=== PATIENT | male | born 1950 | race Caucasian/White ===

== ENCOUNTER 2024-02-28 10:57 | Emergency (ER) | payer MEDICARE, OTHER, SELFPAY ==
[2024-02-28 11:00] VITALS: BP 140/86
[2024-02-28 11:25] LABS: % Basophils 0.4 % (0-2); % Eosinophils 0.8 % (0-6); % Immature Granulocytes 0.4 % (0-0.5); % Lymphocytes 16.9 % (20.5-51.1); % Neutrophils 73.5 % (42.2-75.2); Absolute Eosinophils 0.1 10^3/uL (0-0.7); Absolute Lymphocytes 1.2 10^3/uL (1.2-3.4); Absolute Monocytes 0.6 10^3/uL (0.1-0.6); Absolute Neutrophils 5.3 10^3/uL (1.4-6.5); Hematocrit 46.1 % (39.0-52.0); Hemoglobin 15.6 g/dL (13.0-18.0); Mean Corp Hgb Conc. 33.8 g/dL (33.0-37.0); Mean Corpuscular Hgb 31.6 pg (27.0-31.0); Mean Corpuscular Volume 93.3 fL (80.0-94.0); Mean Platelet Volume 9.9 fL (7.4-10.4); Nucleated Red Blood Cells % 0 % (-); Platelet Count 160 10^3/uL (130-400); Red Blood Cell Count 4.94 10^6/uL (4.70-6.10); Red Cell Dist. Width 12.8 % (11.5-14.5); White Blood Cell Count 7.2 10^3/uL (4.8-10.8)
[2024-02-28 11:39] LABS: ALT (SGPT) 23 U/L (0-50); AST (SGOT) 21 U/L (17-59); Albumin 4.2 g/dl (3.5-5.0); Alkaline Phosphatase 64 U/L (38-126); Blood Urea Nitrogen 21 mg/dl (9-20); Calcium 9.1 mg/dl (8.4-10.2); Carbon Dioxide 31 mmol/L (22-30); Chloride 103 mmol/L (98-107); Glucose 101 mg/dl (70-99); Potassium 4.6 mmol/L (3.5-5.1); Sodium 140 mmol/L (135-145); Total Bilirubin 0.6 mg/dl (0.2-1.3); Total Protein 6.2 g/dl (6.3-8.2); eGFR > 60.00
[2024-02-28 11:50] LABS: Troponin I < 0.012 ng/ml
[2024-02-28 12:12] VITALS: BP 113/73; BMI 22.2
--- NOTE | 2024-02-28 12:13 | ED.GENMED ---
History of Present Illness
General
Chief Complaint: Chest Pain
Source: patient
Exam Limitations: none
Time Seen by Provider: 02/28/24 11:50
Nursing documentation reviewed up to this point in time: agreed with
History of Present Illness
History of Present Illness:
73-year-old male presents to the ER for evaluation of anterior chest pain that started on . He denies any injury but does report that with movement of his chest and taking a deep breath he has anterior chest discomfort. It does not
radiate. Symptoms seem to improve when he is resting. It is not made worse with walking. He denies any recent injury fever chills. He does walk his dogs and reports they do pull him often but he did not take notice to a specific injury. He did
take a full aspirin today. He was a little short of breath in the shower which is what prompted him to come to the ER. He denies any prior history of DVT PE.
Past History
Past History
ED Past Medical History: Hypercholesterolemia and Psychiatric (Anxiety)
ED Past Surgical History: Other (Hernia surgery)
Social History
Tobacco: Non-smoker
Review of Systems
Review of Systems
Allergies reviewed?: Yes
All Other Systems: ROS reviewed and negative except as documented in HPI and ROS
Constitutional: Reports no symptoms; Denies fever
Respiratory: Reports trouble breathing and other (soreness to anterior chest ); Denies cough
Cardiac: Reports other (anterior chest discomfort )
ABD/GI: Reports no symptoms
: Reports no symptoms
Musculoskeletal: Reports no symptoms
Skin: Reports no symptoms
Neurological: Reports no symptoms
Psychiatric: Reports no symptoms
Phy Exam
General Physical Exam
General Presentation: no apparent distress
General age: appears stated age
General Skin: warm and dry
General Habitus: normal
General Mental: alert
General Hydration: appears well hydrated
Cardiovascular Exam
Cardiovascular Exam: regular rate/rhythm, no murmur and normal peripheral pulses
Pulmonary Exam
Pulmonary Exam: lungs clear, no respiratory distress and other (non tender )
Neurological Exam
Neurological Exam: alert and oriented x3
Musculoskeletal Exam
Musculoskeletal Exam: full ROM
Skin Exam
Skin Exam: normal color and warm/dry
Psychiatric Exam
Psychiatric Exam: normal mood/affect
Scores
Heart Score for Chest Pain Patients
STEMI patient?: Not applicable
Course
Orders/Labs/Results
Orders:
Orders
02/28/24 10:58
ECG [Electrocardiogram (*1)] Urgent
Reason for Study: Chest Pain
EKG- Treatment ONCE
02/28/24 11:19
Complete Blood Count/With Diff Urgent
Comprehensive Metabolic Panel Urgent
Troponin I Urgent
02/28/24 12:29
IV Insert/Care/Rem.- Treatment PRN
02/28/24 12:32
Ketorolac [Toradol] 15 mg IV NOW STA
02/28/24 12:43
D-Dimer Urgent
02/28/24 13:29
Chest [CR Chest - 2 Views ] Urgent
Comment:
Reason For Exam: anterior chest pain
Abnormal Lab Results
02/28/24
11:19
MCH 31.6 H pg
(27.0-31.0)
Lymphocytes % 16.9 L %
(20.5-51.1)
Carbon Dioxide 31 H mmol/L
(22-30)
BUN 21 H mg/dl
(9-20)
Glucose 101 H mg/dl
(70-99)
Total Protein 6.2 L g/dl
(6.3-8.2)
02/28/24 11:19
02/28/24 11:19
Vital Signs
Initial and Last Documented VS:
Initial Vital Signs
Temp Pulse Resp BP Pulse Ox
98.3 F 80 18 140/86 98
02/28/24 11:00 02/28/24 11:00 02/28/24 11:00 02/28/24 11:00 02/28/24 11:00
Last Documented Vital Signs
Temp Pulse Resp BP Pulse Ox
98.3 F 61 11 115/73 98
02/28/24 11:00 02/28/24 15:52 02/28/24 15:00 02/28/24 15:52 02/28/24 15:00
MDM/Problems Addressed
Differential Diagnosis Includes:
not limited to: Musculoskeletal chest pain, less likely PE
MDM/Problems Addressed:
Symptoms are consistent musculoskeletal chest pain. Patient is 73-year-old male with no cardiac history describes pain with taking a deep breath though he denies exact injury. He has no pain at rest. He has a negative cardiac troponin no acute
findings on EKG and a negative D-dimer. He is nontachycardic nonhypoxic. Patient received Toradol here feeling better will check a chest x-ray and if negative will DC home with musculoskeletal chest pain instructions will recommend ibuprofen close
the patient follow-up
*Radiology
Radiology exam reviewed: preliminary read by ED provider (I personally visualized the x-ray) and radiology read reviewed
*Pulse Oximetry
Patient hypoxic: no
*Critical Care Note
Total Time (30-74mins, 75-104mins- exclusive of procedures): Not Applicable
ED Attending Note
-
Portions of this chart may have been created with voice recognition software.� Occasional wrong word or��sound alike� substitutions may have occurred due to the inherent limitations of voice recognition software.
Discharge Plan
Departure
Patient Disposition: Home (Routine Discharge)
Date of Disposition: 02/28/24
Time of Disposition: 15:24
Patient with high blood pressure during this ER visit?: Yes
Condition: Fair
Covid-19: Not Applicable
Discharge Problem:
Chest pain
Instructions: Chest Pain That Is Not Caused by the Heart (DC)
Prescriptions:
No Action
atorvastatin 10 MG tablet
10 mg PO Daily
aspirin [Aspir-Low] 81 MG tablet,delayed release (DR/EC)
81 mg PO Daily
alprazolam 0.5 MG tablet
0.5 mg PO PRN PRN (Reason: panic attack)
Klonopin 0.5 MG
0.5 mg PO TID
oxycodone-acetaminophen 5 MG/325 MG tablet
1 - 2 tab PO Q6HPRN PRN (Reason: moderate - severe pain) Qty: 20 0RF
Referrals:
Avery Tran MD [Family Provider] -
Activity Restrictions/Additional Instructions:
As discussed symptoms are likely muscular. You may take ibuprofen every 8 hours with food. Follow-up with family doctor in the next several days return if any worsening of symptoms.
Interventions
Interventions:
*Risk Screen - Suicide Last Done: 02/28/24 11:00
*General Assessment Last Done: 02/28/24 11:00
*Neglect/Abuse Screening Last Done: 02/28/24 11:00
ED- Fall Risk Assessment Last Done: 02/28/24 12:12
*ED COVID-19 Vaccine History Last Done: 02/28/24 12:13
*Nursing Disposition Last Done: 02/28/24 15:52
ED- Cardiac Assessment Last Done: 02/28/24 12:13
Discharge Date and Time
Discharge Date/Time: 02/28/24 16:10
Print Language: ESTONIAN
[2024-02-28] MEDS: TORADOL 15 MG IV (12:47)
[2024-02-28 13:00] VITALS: BP 118/72
[2024-02-28 13:09] LABS: D-Dimer 0.34 ug/mlFEU (0.00-0.50)
[2024-02-28 14:18] VITALS: BP 117/72
[2024-02-28 15:00] VITALS: BP 120/70
[2024-02-28 15:52] VITALS: BP 115/73
== END 2024-02-28 16:10 | disposition home or self-care (01) ==
LOC: EMR 10:57
PROVIDERS: Nurse Practitioner; Student in an Organized Health Care Education/Training Program; EMERGENCY PHYSICIAN Emergency Medicine; FAMILY PHYSICIAN Internal Medicine
DX: R07.89 Other chest pain (principal); E78.00 Pure hypercholesterolemia, unspecified; F41.9 Anxiety disorder, unspecified
CPT/HCPCS: 99283; 96374; 71046; 80053; 84484; 85025; 85379; 93005